=== PATIENT | male | born 1985 | race American Indian/Alaskan Native ===

== ENCOUNTER 2016-06-28 17:50 | Emergency (ER) | payer SELFPAY | END 2016-06-28 19:41 | disposition left against medical advice (07) | LOC: DL.ED 17:50 | DX: Z53.21 Procedure and treatment not carried out due to patient leaving prior to being seen by health care provider (principal) | CPT/HCPCS: 99283 ==

== ENCOUNTER 2017-04-01 18:09 | Emergency (ER) | payer SELFPAY ==
[~2017-04-01 18:09] MED LIST: Sodium Chloride 0.9% 10 ML Syringe FLUSH PRN
[2017-04-01 18:38] LABS: CHLORIDE,CL 107 mmol/L (101-111); SODIUM,NA 142 mmol/L (135-145)
[2017-04-01] MEDS ORDERED: Piperacillin/Tazobactam 3.375 GM in Sodium Chloride 0.9% 100 ML IV ONE (20:40)
--- NOTE | 2017-04-01 20:49 | EDM.PDOC ---
ED HPI GENERAL MEDICAL PROBLEM - General Chief Complaint: Skin Complaint Stated Complaint: CAME BY AMBULANCE, RT FOOT PROBLEM Time Seen by Provider: 04/01/17 19:15 Source of Information: Reports: Patient History Limitations: Reports: No Limitations - History of Present Illness INITIAL COMMENTS - FREE TEXT/NARRATIVE: ED with c/o sore on right foot that is not healing, started 2 weeks ago and is draining. Denies fever or chills. Notes is diabetic, diagnosed 3 years ago and was started on metformin but has not taken it in "long time". - Related Data Allergies Allergy/AdvReac Type Severity Reaction Status Date / Time No Known Allergies Allergy Verified 04/01/17 17:57 Home Meds: Home Meds . [No Known Home Meds] 04/01/17 [History] Past Medical History Endocrine/Metabolic History: Reports: Diabetes, Type II, Other (See Below) Other Endocrine/Metabolic History: diabetic neuropathy Social & Family History - Tobacco Use Smoking Status *Q: Current Every Day Smoker Years of Tobacco use: 9 Packs/Tins Daily: 0.5 - Caffeine Use Caffeine Use: Reports: Coffee, Energy Drinks, Soda - Alcohol Use Days Per Week of Alcohol Use: 2 Number of Drinks Per Day: 10 Total Drinks Per Week: 20 - Recreational Drug Use Recreational Drug Use: Yes Recreational Drug Type: Reports: Marijuana/Hashish ED ROS GENERAL - Review of Systems Review Of Systems: See Below Constitutional: Denies: Fever, Chills HEENT: Reports: No Symptoms Respiratory: Reports: No Symptoms Cardiovascular: Reports: No Symptoms Endocrine: Reports: Other (diabetic, non compliant) GI/Abdominal: Reports: No Symptoms Musculoskeletal: Reports: Foot Pain Skin: Reports: Wound Neurological: Reports: No Symptoms ED EXAM, SKIN/RASH Exam: See Below Exam Limited By: No Limitations General Appearance: Alert, No Apparent Distress Eye Exam: Bilateral Eye: EOMI Ears: Normal External Exam Nose: Normal Inspection Throat/Mouth: Other (poor dentation, odor ETOH) Neck: Normal Inspection Respiratory/Chest: No Respiratory Distress, Lungs Clear Cardiovascular: Normal Peripheral Pulses, Regular Rate, Rhythm Peripheral Pulses: 1+: Dorsalis Pedis (R), 2+: Posterior Tibial (R) GI/Abdominal: Soft Extremities: Other (right foot and lower leg mild swelling, gross swelling to ) Neurological: Alert, Oriented, Normal Cognition Psychiatric: Normal Affect Skin: Warm, Other (2cm circular wound lateral 5th toe right moderate serous drainage, no gross odor noted, discolaration to 5th toe and distla lateral forefoot. ). No: Dry, Intact Associated features: Swelling, Inflammation, Weeping. No: Tenderness ( decreased sensation) Course - Vital Signs Last Recorded V/S: Last Vital Signs Temp 98.3 F 04/01/17 17:50 Pulse 89 04/01/17 17:50 Resp 16 04/01/17 17:50 BP 107/60 04/01/17 17:50 Pulse Ox 100 04/01/17 17:50 - Orders/Labs/Meds Labs: Laboratory Tests 04/01/17 04/01/17 04/01/17 Range/Units 18:00 18:00 18:00 WBC 8.7 (5.0-10.0) 10^3/uL RBC 5.00 (4.6-6.2) 10^6/uL Hgb 14.6 (14.0-18.0) g/dL Hct 43.7 (40.0-54.0) % MCV 87.4 (80-100) fL MCH 29.2 (27.0-34.0) pg MCHC 33.4 (33.0-35.0) g/dL Plt Count 298 (150-450) 10^3/uL Neut % (Auto) 76.7 H (42.2-75.2) % Lymph % (Auto) 15.9 L (20.5-50.1) % [place] % (Auto) 5.8 (2-8) % Eos % (Auto) 1.1 (1.0-3.0) % Baso % (Auto) 0.5 (0.0-1.0) % Sodium 142 (135-145) mmol/L Potassium 3.7 (3.6-5.0) mmol/L Chloride 107 (101-111) mmol/L Carbon Dioxide 26.0 (21.0-31.0) mmol/L Anion Gap 12.7 BUN 7 (7-18) mg/dL Creatinine 0.7 (0.6-1.3) mg/dL Est Cr Clr Drug Dosing 191.17 mL/min Estimated GFR (MDRD) > 60 BUN/Creatinine Ratio 10.00 Glucose 96 (74-105) mg/dL Lactic Acid 1.6 (0.5-2.2) mmol/L Calcium 8.4 (8.4-10.2) mg/dl Total Bilirubin 0.3 (0.2-1.0) mg/dL AST 23 (10-42) IU/L ALT 8 L (10-60) IU/L Alkaline Phosphatase 75 (42-121) IU/L Total Protein 8.3 H (6.7-8.2) g/dl Albumin 3.6 (3.2-5.5) g/dl Globulin 4.7 Albumin/Globulin Ratio 0.77 Urine Color (YELLOW) Urine Appearance (CLEAR) Urine pH (5.0-9.0) Ur Specific [place] (1.005-1.030) Urine Protein (NEGATIVE) Urine Glucose (UA) (NEGATIVE) Urine Ketones (NEGATIVE) Urine Occult Blood (NEGATIVE) Urine Nitrite (NEGATIVE) Urine Bilirubin (NEGATIVE) Urine Urobilinogen (0.2-1.0) mg/dL Ur Leukocyte Esterase (NEGATIVE) Urine RBC /HPF Urine WBC (0-5/HPF) /HPF Ur Epithelial Cells /HPF Urine Bacteria (0-FEW/HPF) /HPF Urine Mucus /LPF Urine Opiates Screen (NEGATIVE) Ur Oxycodone Screen (NEGATIVE) Urine Methadone Screen (NEGATIVE) Ur Barbiturates Screen (NEGATIVE) U Tricyclic Antidepress (NEGATIVE) Ur Phencyclidine Scrn (NEGATIVE) Ur Amphetamine Screen (NEGATIVE) U Methamphetamines Scrn (NEGATIVE) Urine MDMA Screen (NEGATIVE) U Benzodiazepines Scrn (NEGATIVE) Urine Cocaine Screen (NEGATIVE) U Marijuana (THC) Screen (NEGATIVE) Ethyl Alcohol 250 mg/dL 04/01/17 04/01/17 Range/Units 18:18 18:18 WBC (5.0-10.0) 10^3/uL RBC (4.6-6.2) 10^6/uL Hgb (14.0-18.0) g/dL Hct (40.0-54.0) % MCV (80-100) fL MCH (27.0-34.0) pg MCHC (33.0-35.0) g/dL Plt Count (150-450) 10^3/uL Neut % (Auto) (42.2-75.2) % Lymph % (Auto) (20.5-50.1) % [place] % (Auto) (2-8) % Eos % (Auto) (1.0-3.0) % Baso % (Auto) (0.0-1.0) % Sodium (135-145) mmol/L Potassium (3.6-5.0) mmol/L Chloride (101-111) mmol/L Carbon Dioxide (21.0-31.0) mmol/L Anion Gap BUN (7-18) mg/dL Creatinine (0.6-1.3) mg/dL Est Cr Clr Drug Dosing mL/min Estimated GFR (MDRD) BUN/Creatinine Ratio Glucose (74-105) mg/dL Lactic Acid (0.5-2.2) mmol/L Calcium (8.4-10.2) mg/dl Total Bilirubin (0.2-1.0) mg/dL AST (10-42) IU/L ALT (10-60) IU/L Alkaline Phosphatase (42-121) IU/L Total Protein (6.7-8.2) g/dl Albumin (3.2-5.5) g/dl Globulin Albumin/Globulin Ratio Urine Color Yellow (YELLOW) Urine Appearance Clear (CLEAR) Urine pH 6.0 (5.0-9.0) Ur Specific [place] 1.015 (1.005-1.030) Urine Protein Negative (NEGATIVE) Urine Glucose (UA) Negative (NEGATIVE) Urine Ketones Negative (NEGATIVE) Urine Occult Blood Negative (NEGATIVE) Urine Nitrite Negative (NEGATIVE) Urine Bilirubin Negative (NEGATIVE) Urine Urobilinogen 0.2 (0.2-1.0) mg/dL Ur Leukocyte Esterase Negative (NEGATIVE) Urine RBC 0-5 /HPF Urine WBC 0-5 (0-5/HPF) /HPF Ur Epithelial Cells Few /HPF Urine Bacteria Few (0-FEW/HPF) /HPF Urine Mucus Moderate H /LPF Urine Opiates Screen Negative (NEGATIVE) Ur Oxycodone Screen Negative (NEGATIVE) Urine Methadone Screen Negative (NEGATIVE) Ur Barbiturates Screen Negative (NEGATIVE) U Tricyclic Antidepress Negative (NEGATIVE) Ur Phencyclidine Scrn Negative (NEGATIVE) Ur Amphetamine Screen Positive H (NEGATIVE) U Methamphetamines Scrn Positive H (NEGATIVE) Urine MDMA Screen Negative (NEGATIVE) U Benzodiazepines Scrn Negative (NEGATIVE) Urine Cocaine Screen Negative (NEGATIVE) U Marijuana (THC) Screen Positive H (NEGATIVE) Ethyl Alcohol mg/dL Meds: Medications Discontinued Medications Generic Name Dose Route Start Last Admin Trade Name Freq PRN Reason Stop Dose Admin Piperacillin Sod/Tazobactam 100 mls @ 200 mls/hr 04/01/17 20:40 04/01/17 20: 51 Sod 3.375 gm/ Sodium Chloride IV 04/01/17 21:09 200 mls/hr ONETIME ONE Administration Vancomycin HCl 1 gm/ Sodium 250 mls @ 167 mls/hr 04/01/17 20:40 04/01/17 20: 53 Chloride IV 04/01/17 22:09 Not Given ONETIME ONE Sodium Chloride 10 ml 04/01/17 17:45 04/01/17 18:04 Saline Flush FLUSH 10 ml ASDIRECTED PRN Administration Keep Vein Open - Radiology Interpretation Free Text/Narrative:: xray right foot, osteomylitis to 5th toe - Re-Assessments/Exams Free Text/Narrative Re-Assessment/Exam: 04/01/17 20:50 Patient denying any drug use currently with exception of cannibas or use hx. UDS demonstrates positive also for meth and amphetamine. Strong odor ETOH, with elevated ETOH. TC Dr. Nils Duffy, accepting of patient for further eval and management of diabetic wound and osteomylitis. Tx via LRAS, stable condition Departure - Departure Time of Disposition: 20:52 Disposition: DC/Tfer to Acute Hospital 02 Condition: Undetermined Clinical Impression: Acute osteomyelitis, ETOH abuse, Substance abuse Diabetic ulcer of toe Qualifiers: Diabetes mellitus type: type 2 Laterality: right Non-pressure ulcer stage: unspecified non-pressure ulcer stage Qualified Code(s): E11.621 - Type 2 diabetes mellitus with foot ulcer - Discharge Information Forms: ED Department Discharge
== END 2017-04-01 21:20 ==
LOC: DL.ED 18:09
DX: M86.171 Other acute osteomyelitis, right ankle and foot (principal); E11.621 Type 2 diabetes mellitus with foot ulcer; F10.10 Alcohol abuse, uncomplicated; F15.10 Other stimulant abuse, uncomplicated; E11.40 Type 2 diabetes mellitus with diabetic neuropathy, unspecified; F17.210 Nicotine dependence, cigarettes, uncomplicated
CPT/HCPCS: 36415; 73630; 80053; 80305; 81001; 83605; 85025; 87040; 96365; 99284; G0480; J2543; J7050

== ENCOUNTER 2017-12-02 13:21 | Emergency (ER) | payer MEDICAID ==
[2017-12-02] MEDS ORDERED: Sulfamethoxazole/Trimethoprim 800-160 MG Tab PO ONE (15:37)
[2017-12-02] MEDS ORDERED: Clindamycin HCl 150 MG Cap PO ONE (15:37)
--- NOTE | 2017-12-23 11:21 | EDM.PDOC ---
Scribed by Mimi Winchester 12/04/17 1314 for René Gonzalez MD ED HPI GENERAL MEDICAL PROBLEM - General Chief Complaint: Lower Extremity Injury/Pain Stated Complaint: AMBULANCE Time Seen by Provider: 12/02/17 13:23 Source of Information: Reports: Patient, EMS, EMS Notes Reviewed, RN, RN Notes Reviewed History Limitations: Reports: No Limitations - History of Present Illness INITIAL COMMENTS - FREE TEXT/NARRATIVE: Pt presented to ER by ambulance with c/o ulcer to the Rt 1st toe/foot. Pt isn't sure how long it has been there. Denies fever or chills. Onset: Gradual Duration: Chronic - Related Data Allergies Allergy/AdvReac Type Severity Reaction Status Date / Time No Known Allergies Allergy Verified 12/12/17 11:22 Home Meds: Home Meds Ibuprofen 200 mg PO ASDIRECTED PRN 04/13/17 [History] metFORMIN HCl [Metformin HCl] 1,000 mg PO BID 04/13/17 [History] Past Medical History HEENT History: Reports: Impaired Vision Cardiovascular History: Reports: Hypertension Musculoskeletal History: Reports: Fracture, Other (See Below) Other Musculoskeletal History: broken collar bone, broken arms, broken Psychiatric History: Reports: Depression Endocrine/Metabolic History: Reports: Diabetes, Type II, Other (See Below) Other Endocrine/Metabolic History: diabetic neuropathy - Infectious Disease History Infectious Disease History: Reports: Chicken Pox - Past Surgical History HEENT Surgical History: Reports: None Cardiovascular Surgical History: Reports: None Other Neurological Surgeries/Procedures: pt used to be on zoloft Musculoskeletal Surgical History: Reports: Amputation (Rt 5th toe) Social & Family History - Family History Endocrine/Metabolic: Reports: Diabetes, type II - Caffeine Use Caffeine Use: Reports: Coffee, Soda - Living Situation & Occupation Living situation: Reports: with Family Occupation: Employed Review of Systems - Review of Systems Review Of Systems: ROS reveals no pertinent complaints other than HPI. ED EXAM, GENERAL - Physical Exam Exam: See Below Exam Limited By: No Limitations General Appearance: Alert, WD/WN, No Apparent Distress Head: Atraumatic, Normocephalic Neck: Normal Inspection Respiratory/Chest: No Respiratory Distress Cardiovascular: Normal Peripheral Pulses Extremities: Normal Range of Motion, No Pedal Edema, Normal Capillary Refill, Increased Warmth, Other (unstagable plantar pressure ulcer to Rt 1st toe with small amt. of purulent drainage, minimal peripheral erythema. Remote amputation of Rt 5th toe. ). No: Joint Swelling Neurological: Alert, Oriented, No Motor/Sensory Deficits Psychiatric: Normal Mood Course - Vital Signs Last Recorded V/S: Last Vital Signs Temp 36.6 C 12/02/17 14:14 Pulse 78 12/02/17 14:14 Resp 15 12/02/17 14:14 BP 135/90 12/02/17 14:14 Pulse Ox 99 12/02/17 14:14 - Orders/Labs/Meds Labs: Laboratory Tests 12/02/17 12/02/17 12/02/17 Range/Units 14:27 14:30 14:30 WBC 6.2 (5.0-10.0) 10^3/uL RBC 4.88 (4.6-6.2) 10^6/uL Hgb 13.7 L (14.0-18.0) g/dL Hct 42.0 (40.0-54.0) % MCV 86.1 (80-100) fL MCH 28.1 (27.0-34.0) pg MCHC 32.6 L (33.0-35.0) g/dL Plt Count 282 (150-450) 10^3/uL Neut % (Auto) 75.7 H (42.2-75.2) % Lymph % (Auto) 16.1 L (20.5-50.1) % [place] % (Auto) 6.1 (2-8) % Eos % (Auto) 1.8 (1.0-3.0) % Baso % (Auto) 0.3 (0.0-1.0) % POC Glucose 238 H (70-105) mg/dl C-Reactive Protein 4.0 H (0.0-1.3) mg/dL Meds: Medications Discontinued Medications Generic Name Dose Route Start Last Admin Trade Name Freq PRN Reason Stop Dose Admin Clindamycin HCl 300 mg 12/02/17 15:37 12/02/17 15:44 Cleocin PO 12/02/17 15:38 300 mg ONETIME ONE Administration Trimethoprim/Sulfamethoxazole 1 tab 12/02/17 15:37 12/02/17 15:44 Septra Ds PO 12/02/17 15:38 1 tab ONETIME ONE Administration - Radiology Interpretation Free Text/Narrative:: X-ray right foot: There is no evidence of acute fracture. There is no evidence of joint malignment or dislocation. There has been prior amputation of the fifth toe. See rad report. Departure - Departure Time of Disposition: 16:27 Disposition: Home, Self-Care 01 Condition: Fair Clinical Impression: Diabetic ulcer of toe associated with type 2 diabetes mellitus Qualifiers: Laterality: right Non-pressure ulcer stage: unspecified non-pressure ulcer stage Qualified Code(s): E11.621 - Type 2 diabetes mellitus with foot ulcer; L97.519 - Non-pressure chronic ulcer of other part of right foot with unspecified severity - Discharge Information Instructions: Diabetes Mellitus and Foot Care Referrals: PCP,None [Primary Care Provider] - Forms: ED Department Discharge Additional Instructions: RX: Clindamycin 300mg. RX: Bactrim DS. Follow up at [facility] on Monday for recheck and podiatry referral. I have read and agree with the documentation that has been completed regarding this visit. By signing this record, I attest that the documentation was completed in my physical presence and is an accurate record of the encounter.
== END 2017-12-02 16:50 | disposition home or self-care (01) ==
LOC: DL.ED 13:21
DX: E11.621 Type 2 diabetes mellitus with foot ulcer (principal); L97.519 Non-pressure chronic ulcer of other part of right foot with unspecified severity; Z79.84 Long term (current) use of oral hypoglycemic drugs; I10 Essential (primary) hypertension; H54.7 Unspecified visual loss; E11.40 Type 2 diabetes mellitus with diabetic neuropathy, unspecified; M20.5X1 Other deformities of toe(s) (acquired), right foot
CPT/HCPCS: 36415; 73630; 82962; 85025; 86140; 99283; A9270

== ENCOUNTER 2017-12-12 11:20 | Emergency (ER) | payer MEDICAID ==
--- NOTE | 2017-12-12 11:59 | EDM.PDOC ---
ED HPI GENERAL MEDICAL PROBLEM - General Chief Complaint: Lower Extremity Injury/Pain Stated Complaint: IN BY AMBULANCE Time Seen by Provider: 12/12/17 11:45 Source of Information: Reports: Patient History Limitations: Reports: No Limitations - History of Present Illness INITIAL COMMENTS - FREE TEXT/NARRATIVE: This 32 yo male patient reports to the ED with right great toe pain, swelling and drainage. The patient reports that he has been seen in the ED for his toe on 12/02/17, followed up in the [facility] on 12/04/17, missed his follow- up appointment yesterday and has noticed drainage from the area that started last night. The patient reports that he was initially started on Bactrim and Clindamycin (12/02/17). The patient was given Doxycycline on 12/04/17 and has been taking the medication as directed. The patient reports that he does not recall having an appointment with a meringuer. 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 Onset: Unknown/Unsure Duration: Week(s):, Constant, Getting Worse Location: Reports: Lower Extremity, Right Quality: Reports: Ache, Dull Severity: Moderate Improves with: Reports: None Worsens with: Reports: None Associated Symptoms: Reports: No Other Symptoms - Related Data Allergies Allergy/AdvReac Type Severity Reaction Status Date / Time No Known Allergies Allergy Verified 12/12/17 11:22 Home Meds: Home Meds Ibuprofen 200 mg PO ASDIRECTED PRN 04/13/17 [History] metFORMIN HCl [Metformin HCl] 1,000 mg PO BID 04/13/17 [History] Past Medical History HEENT History: Reports: Impaired Vision Cardiovascular History: Reports: Hypertension Musculoskeletal History: Reports: Fracture, Other (See Below) Other Musculoskeletal History: broken collar bone, broken arms, broken Psychiatric History: Reports: Depression Endocrine/Metabolic History: Reports: Diabetes, Type II, Other (See Below) Other Endocrine/Metabolic History: diabetic neuropathy - Infectious Disease History Infectious Disease History: Reports: Chicken Pox - Past Surgical History HEENT Surgical History: Reports: None Cardiovascular Surgical History: Reports: None Other Neurological Surgeries/Procedures: pt used to be on zoloft Social & Family History - Family History Family Medical History: Noncontributory Endocrine/Metabolic: Reports: Diabetes, type II - Tobacco Use Smoking Status *Q: Current Every Day Smoker Years of Tobacco use: 10 Packs/Tins Daily: 0.1 - Caffeine Use Caffeine Use: Reports: Soda - Alcohol Use Days Per Week of Alcohol Use: 1 Number of Drinks Per Day: 3 Total Drinks Per Week: 3 - Recreational Drug Use Recreational Drug Use: Yes Drug Use in Last 12 Months: Yes Recreational Drug Type: Reports: Marijuana/Hashish Recreational Drug Use Frequency: Socially Review of Systems - Review of Systems Review Of Systems: ROS reveals no pertinent complaints other than HPI. ED EXAM, GENERAL - Physical Exam Exam: See Below Exam Limited By: No Limitations General Appearance: Alert, WD/WN, Mild Distress Eye Exam: Bilateral Eye: EOMI, Normal Inspection, PERRL Ears: Normal External Exam, Normal Canal, Hearing Grossly Normal, Normal TMs Nose: Normal Inspection, Normal Mucosa, No Blood Throat/Mouth: Normal Inspection, Normal Lips, Normal Teeth, Normal Gums, Normal Oropharynx, Normal Voice, No Airway Compromise Head: Atraumatic, Normocephalic Neck: Normal Inspection, Supple, Non-Tender, Full Range of Motion Respiratory/Chest: No Respiratory Distress, Lungs Clear, Normal Breath Sounds, No Accessory Muscle Use, Chest Non-Tender Cardiovascular: Normal Peripheral Pulses, Regular Rate, Rhythm, No Edema, No Gallop, No JVD, No Murmur, No Rub GI/Abdominal: Normal Bowel Sounds, Soft, Non-Tender, No Organomegaly, No Distention, No Abnormal Bruit, No Mass (Male) Exam: Deferred Rectal (Males) Exam: Deferred Back Exam: Normal Inspection, Full Range of Motion, NT Extremities: Other (right great toe ertythema with an open wound to the medial aspect) Neurological: Alert, Oriented, CN II-XII Intact, Normal Cognition Psychiatric: Normal Affect, Normal Mood Skin Exam: Erythema (right medial great toe), Wound/Incision Lymphatic: No Adenopathy Course - Vital Signs Last Recorded V/S: Last Vital Signs Temp 36.3 C 12/12/17 11:21 Pulse 96 12/12/17 11:21 Resp 15 12/12/17 11:21 BP 133/90 12/12/17 11:21 Pulse Ox 100 12/12/17 11:21 - Orders/Labs/Meds Orders: Active Orders 24 hr Category Date Time Status COMPREHENSIVE METABOLIC PN,CMP [CHEM] Urgent Lab 12/12/17 11:37 Received CULTURE BLOOD [BC] Stat Lab 12/12/17 11:37 Received CULTURE BLOOD [BC] Stat Lab 12/12/17 11:41 Received LACTIC ACID [CHEM] Stat Lab 12/12/17 11:37 Received Blood Culture x2 Reflex Set [OM.PC] Stat Oth 12/12/17 11:25 Ordered Labs: Laboratory Tests 12/12/17 Range/Units 11:37 WBC 6.2 (5.0-10.0) 10^3/uL RBC 5.24 (4.6-6.2) 10^6/uL Hgb 14.9 (14.0-18.0) g/dL Hct 45.0 (40.0-54.0) % MCV 85.9 (80-100) fL MCH 28.4 (27.0-34.0) pg MCHC 33.1 (33.0-35.0) g/dL Plt Count 196 D (150-450) 10^3/uL Neut % (Auto) 79.4 H (42.2-75.2) % Lymph % (Auto) 10.6 L (20.5-50.1) % [place] % (Auto) 9.0 H (2-8) % Eos % (Auto) 0.5 L (1.0-3.0) % Baso % (Auto) 0.5 (0.0-1.0) % Meds: Medications Discontinued Medications Generic Name Dose Route Start Last Admin Trade Name Freq PRN Reason Stop Dose Admin Bacitracin 1 dose 12/12/17 12:25 Bacitracin Oint 1 Gm TOP 12/12/17 12:26 ONETIME ONE Departure - Departure Time of Disposition: 12:28 Disposition: Home, Self-Care 01 Condition: Fair Clinical Impression: Diabetic foot ulcer Qualifiers: Diabetic foot ulcer location: toe Diabetes mellitus type: other specified ( including EMILY) Laterality: right Non-pressure ulcer stage: unspecified non- pressure ulcer stage Qualified Code(s): E13.621 - Other specified diabetes mellitus with foot ulcer; L97.519 - Non-pressure chronic ulcer of other part of right foot with unspecified severity - Discharge Information *PRESCRIPTION DRUG MONITORING PROGRAM REVIEWED*: Not Applicable *COPY OF PRESCRIPTION DRUG MONITORING REPORT IN PATIENT JABIER: Not Applicable Forms: ED Department Discharge Care Plan Goals: The patient was advised of the examination, lab and x-ray results during the visit. An appointment was established for the patient to see Dr. Encinas ( Podiatry at [facility]) today at 1500. The patient's wound was cleaned and bandaged while in the ED. If the patient has any additional symptoms or concerns, the patient should visit Dr. Encinas for continued evaluation and further care. - My Orders Last 24 Hours: My Active Orders 12/12/17 11:25 Blood Culture x2 Reflex Set [OM.PC] Stat 12/12/17 11:37 COMPREHENSIVE METABOLIC PN,CMP [CHEM] Urgent CULTURE BLOOD [BC] Stat LACTIC ACID [CHEM] Stat 12/12/17 11:41 CULTURE BLOOD [BC] Stat - Assessment/Plan Last 24 Hours: My Active Orders 12/12/17 11:25 Blood Culture x2 Reflex Set [OM.PC] Stat 12/12/17 11:37 COMPREHENSIVE METABOLIC PN,CMP [CHEM] Urgent CULTURE BLOOD [BC] Stat LACTIC ACID [CHEM] Stat 12/12/17 11:41 CULTURE BLOOD [BC] Stat
--- NOTE | 2017-12-12 12:02 | CR ---
CLINICAL HISTORY: 32-year-old male with right toe pain. Patient reported on right forefoot exam 2017 to have "amputation fifth toe" but no other abnormality. INTERPRETATION: Three views right great toe suggests some early arthritis (reactive sclerosis and tin y marginal spur formation) first metatarsal-phalangeal joint. Clinical? No appreciable interval bliss e since recent 02 December films. No sign of foreign body, inflammatory periostitis, right great toe fracture or dislocation. No juxta-articular gouty tophi or underlying bony erosions.
[2017-12-12] MEDS ORDERED: Bacitracin Oint 1 GM U/D Packet TOP ONE (12:25)
[2017-12-12 14:20] LABS: SODIUM,NA 132 mmol/L (135-145)
== END 2017-12-12 12:36 | disposition home or self-care (01) ==
LOC: DL.ED 11:20
DX: E11.621 Type 2 diabetes mellitus with foot ulcer (principal); L97.519 Non-pressure chronic ulcer of other part of right foot with unspecified severity; F17.210 Nicotine dependence, cigarettes, uncomplicated; I10 Essential (primary) hypertension; E11.9 Type 2 diabetes mellitus without complications; Z79.84 Long term (current) use of oral hypoglycemic drugs
CPT/HCPCS: 36415; 73660-T5; 80053; 83605; 85025; 87040; 99284

== ENCOUNTER 2018-01-25 17:57 | Emergency (ER) | payer MEDICAID ==
[2018-01-25 18:50] LABS: ANION GAP 12.9; CHLORIDE,CL 91 mmol/L (101-111); SODIUM,NA 129 mmol/L (135-145)
[2018-01-25] MEDS ORDERED: Sodium Chloride 0.9% 1,000 ML IV ONE (19:01)
[2018-01-25] MEDS ORDERED: Insulin Regular, Human 100 Units/ML 3 ML Vial SUBCUT ONE (19:01)
--- NOTE | 2018-01-25 19:09 | EDM.PDOC ---
Scribed by Mimi Winchester 01/25/18 094 for René Gonzalez MD ED HPI GENERAL MEDICAL PROBLEM - General Chief Complaint: Lower Extremity Injury/Pain Stated Complaint: FOOT INFECTION Time Seen by Provider: 01/25/18 17:56 Source of Information: Reports: Patient, EMS, EMS Notes Reviewed, RN, RN Notes Reviewed History Limitations: Reports: No Limitations - History of Present Illness INITIAL COMMENTS - FREE TEXT/NARRATIVE: Patient presents to ER per [facility] with complaint of large right foot ulcer. Patient reports that this ulcer has been present for about a week. EMS report a 10cm x 5cm deep chronic appearing ulcer which looks much older than 1 week. Patient has history of diabetes mellitus type 2, noninsulin dependent but has not taken his Metformin for about 1 year. Patient states he had osteomyelitis which resulted in amputation of the right fifth toe about a year ago. He denies fever or chills. He admits that he has been having some drainage from the right/ankle ulcer, but he cannot describe the appearance of the drainage. Onset: Gradual Duration: Getting Worse Location: Reports: Lower Extremity, Right Severity: Severe Improves with: Reports: None Worsens with: Reports: None Associated Symptoms: Reports: No Other Symptoms Right Feet Pain Score (Numeric/FACES): 8 - Related Data Allergies Allergy/AdvReac Type Severity Reaction Status Date / Time No Known Allergies Allergy Verified 12/12/17 11:22 Home Meds: Home Meds Ibuprofen 200 mg PO ASDIRECTED PRN 04/13/17 [History] metFORMIN HCl [Metformin HCl] 1,000 mg PO BID 04/13/17 [History] Past Medical History HEENT History: Reports: Impaired Vision Cardiovascular History: Reports: Hypertension Musculoskeletal History: Reports: Fracture, Other (See Below) Other Musculoskeletal History: broken collar bone, broken arms, broken Psychiatric History: Reports: Depression Endocrine/Metabolic History: Reports: Diabetes, Type II, Other (See Below) Other Endocrine/Metabolic History: diabetic neuropathy - Infectious Disease History Infectious Disease History: Reports: Chicken Pox - Past Surgical History HEENT Surgical History: Reports: None Cardiovascular Surgical History: Reports: None Other Neurological Surgeries/Procedures: pt used to be on zoloft Social & Family History - Family History Family Medical History: Noncontributory Endocrine/Metabolic: Reports: Diabetes, type II - Caffeine Use Caffeine Use: Reports: Soda - Living Situation & Occupation Living situation: Reports: with Family Occupation: Unemployed Review of Systems - Review of Systems Review Of Systems: ROS reveals no pertinent complaints other than HPI. ED EXAM, GENERAL - Physical Exam Exam: See Below Exam Limited By: No Limitations General Appearance: Alert, No Apparent Distress, Thin, Other (unkept with poor hygiene and chronically ill appearing. ) Nose: Normal Inspection Throat/Mouth: Normal Voice, No Airway Compromise Head: Atraumatic, Normocephalic Neck: Normal Inspection, Supple, Non-Tender, Full Range of Motion Respiratory/Chest: No Respiratory Distress, Lungs Clear, Normal Breath Sounds, No Accessory Muscle Use, Chest Non-Tender Cardiovascular: Regular Rate, Rhythm, No Edema Back Exam: Normal Inspection Extremities: Slow Capillary Refill (toes bilaterally), Other (dorsal right foot and ankle with 10cm x 5cm deep chronic appearing ulcer unstageable depth. Has s/ p right 5th toe amputation. There is mild soft tissue swelling to the medial left foot extending to the medial first toe where a cloudy callus appears to have a likely underlying ulceration. ) Neurological: Alert, Oriented, No Motor/Sensory Deficits Psychiatric: Normal Mood Skin Exam: Other (bilateral upper extremity recent tatoos with bilateral proximal forearm tatoos with mild erythema, inflammation and crusting. ) Course - Vital Signs Last Recorded V/S: Last Vital Signs Temp 36.8 C 01/25/18 18:42 Pulse 96 01/25/18 18:42 Resp 16 01/25/18 18:42 BP 135/92 H 01/25/18 18:42 Pulse Ox 100 01/25/18 18:42 - Orders/Labs/Meds Orders: Active Orders 24 hr Category Date Time Status Blood Glucose Check, Bedside [RC] ONETIME Care 01/25/18 18:08 Active CULTURE BLOOD [BC] Stat Lab 01/25/18 18:15 Received CULTURE BLOOD [BC] Stat Lab 01/25/18 18:20 Results DRUG SCREEN URINE BIORAD [URCHEM] Stat Lab 01/25/18 19:05 Ordered ESR [SEDIMENTATION RATE MANUAL] [HEME] Stat Lab 01/25/18 18:15 Received UA W/MICROSCOPIC [URIN] Stat Lab 01/25/18 19:05 Ordered Sodium Chloride 0.9% [Normal Saline] 1,000 ml Med 01/25/18 19:01 Active IV .BOLUS Blood Culture x2 Reflex Set [OM.PC] Stat Oth 01/25/18 18:08 Ordered Medication Orders Sodium Chloride (Normal Saline) 1,000 mls @ 999 mls/hr IV .BOLUS ONE Stop: 01/25/18 20:01 Labs: Laboratory Tests 01/25/18 01/25/18 01/25/18 Range/Units 18:15 18:15 18:15 WBC 7.0 (5.0-10.0) 10^3/uL RBC 4.59 L (4.6-6.2) 10^6/uL Hgb 12.8 L D (14.0-18.0) g/dL Hct 39.2 L (40.0-54.0) % MCV 85.4 (80-100) fL MCH 27.9 (27.0-34.0) pg MCHC 32.7 L (33.0-35.0) g/dL Plt Count 406 D (150-450) 10^3/uL Neut % (Auto) 73.1 (42.2-75.2) % Lymph % (Auto) 16.9 L (20.5-50.1) % [place] % (Auto) 8.3 H (2-8) % Eos % (Auto) 1.4 (1.0-3.0) % Baso % (Auto) 0.3 (0.0-1.0) % Sodium 129 L (135-145) mmol/L Potassium 3.9 (3.6-5.0) mmol/L Chloride 91 L D (101-111) mmol/L Carbon Dioxide 29.0 (21.0-31.0) mmol/L Anion Gap 12.9 BUN < 5 L (7-18) mg/dL Creatinine 0.8 (0.6-1.3) mg/dL Est Cr Clr Drug Dosing 165.76 mL/min Estimated GFR (MDRD) > 60 BUN/Creatinine Ratio 6.25 Glucose 469 H* (74-105) mg/dL POC Glucose (70-105) mg/dl Lactic Acid 1.4 (0.5-2.2) mmol/L Calcium 8.8 (8.4-10.2) mg/dl Total Bilirubin 0.4 (0.2-1.0) mg/dL AST 15 (10-42) IU/L ALT 9 L (10-60) IU/L Alkaline Phosphatase 124 H (42-121) IU/L C-Reactive Protein (0.0-1.3) mg/dL Total Protein 7.4 (6.7-8.2) g/dl Albumin 2.9 L (3.2-5.5) g/dl Globulin 4.5 Albumin/Globulin Ratio 0.64 Ethyl Alcohol < 5 mg/dL 01/25/18 01/25/18 Range/Units 18:15 18:31 WBC (5.0-10.0) 10^3/uL RBC (4.6-6.2) 10^6/uL Hgb (14.0-18.0) g/dL Hct (40.0-54.0) % MCV (80-100) fL MCH (27.0-34.0) pg MCHC (33.0-35.0) g/dL Plt Count (150-450) 10^3/uL Neut % (Auto) (42.2-75.2) % Lymph % (Auto) (20.5-50.1) % [place] % (Auto) (2-8) % Eos % (Auto) (1.0-3.0) % Baso % (Auto) (0.0-1.0) % Sodium (135-145) mmol/L Potassium (3.6-5.0) mmol/L Chloride (101-111) mmol/L Carbon Dioxide (21.0-31.0) mmol/L Anion Gap BUN (7-18) mg/dL Creatinine (0.6-1.3) mg/dL Est Cr Clr Drug Dosing mL/min Estimated GFR (MDRD) BUN/Creatinine Ratio Glucose (74-105) mg/dL POC Glucose 388 H (70-105) mg/dl Lactic Acid (0.5-2.2) mmol/L Calcium (8.4-10.2) mg/dl Total Bilirubin (0.2-1.0) mg/dL AST (10-42) IU/L ALT (10-60) IU/L Alkaline Phosphatase (42-121) IU/L C-Reactive Protein 1.9 H (0.0-1.3) mg/dL Total Protein (6.7-8.2) g/dl Albumin (3.2-5.5) g/dl Globulin Albumin/Globulin Ratio Ethyl Alcohol mg/dL Meds: Medications Generic Name Dose Route Start Last Admin Trade Name Freq PRN Reason Stop Dose Admin Sodium Chloride 1,000 mls @ 999 mls/hr 01/25/18 19:01 Normal Saline IV 01/25/18 20:01 .BOLUS ONE Discontinued Medications Generic Name Dose Route Start Last Admin Trade Name Jayq PRN Reason Stop Dose Admin Insulin Human Regular 12 unit 01/25/18 19:01 Humulin R SUBCUT 01/25/18 19:02 ONETIME ONE Departure - Departure Time of Disposition: 18:53 Disposition: DC/Tfer to [facility] 02 Condition: Serious Clinical Impression: Diabetic ulcer of right lower leg associated with diabetes mellitus due to underlying condition, Hyponatremia Diabetes mellitus type 2, uncontrolled Qualifiers: Glycemic state: with hyperglycemia Qualified Code(s): E11.65 - Type 2 diabetes mellitus with hyperglycemia - Discharge Information *PRESCRIPTION DRUG MONITORING PROGRAM REVIEWED*: No *COPY OF PRESCRIPTION DRUG MONITORING REPORT IN PATIENT JABIER: No Forms: ED Department Discharge, Interfacility Transfer EMTALA - My Orders Last 24 Hours: My Active Orders 01/25/18 18:08 Blood Glucose Check, Bedside [RC] ONETIME Blood Culture x2 Reflex Set [OM.PC] Stat 01/25/18 18:15 CULTURE BLOOD [BC] Stat ESR [SEDIMENTATION RATE MANUAL] [HEME] Stat 01/25/18 18:20 CULTURE BLOOD [BC] Stat 01/25/18 19:01 Sodium Chloride 0.9% [Normal Saline] 1,000 ml IV .BOLUS 01/25/18 19:05 DRUG SCREEN URINE BIORAD [URCHEM] Stat UA W/MICROSCOPIC [URIN] Stat - Assessment/Plan Last 24 Hours: My Active Orders 01/25/18 18:08 Blood Glucose Check, Bedside [RC] ONETIME Blood Culture x2 Reflex Set [OM.PC] Stat 01/25/18 18:15 CULTURE BLOOD [BC] Stat ESR [SEDIMENTATION RATE MANUAL] [HEME] Stat 01/25/18 18:20 CULTURE BLOOD [BC] Stat 01/25/18 19:01 Sodium Chloride 0.9% [Normal Saline] 1,000 ml IV .BOLUS 01/25/18 19:05 DRUG SCREEN URINE BIORAD [URCHEM] Stat UA W/MICROSCOPIC [URIN] Stat I have read and agree with the documentation that has been completed regarding this visit. By signing this record, I attest that the documentation was completed in my physical presence and is an accurate record of the encounter.
== END 2018-01-25 19:32 ==
LOC: DL.ED 17:57
DX: E11.621 Type 2 diabetes mellitus with foot ulcer (principal); L97.519 Non-pressure chronic ulcer of other part of right foot with unspecified severity; E11.65 Type 2 diabetes mellitus with hyperglycemia; E87.1 Hypo-osmolality and hyponatremia; I10 Essential (primary) hypertension; Z79.84 Long term (current) use of oral hypoglycemic drugs
CPT/HCPCS: 36415; 80053; 80305; 81001; 82009; 82962; 83605; 85025; 85651; 86140; 87040; 96365; 96372; 99284; G0480; J1815; J7030

== ENCOUNTER 2021-04-25 08:21 | Emergency (ER) | payer SELFPAY ==
--- NOTE | 2021-04-25 08:41 | EDM.PDOC ---
ED HPI GENERAL MEDICAL PROBLEM - General Stated Complaint: AMBULANCE Time Seen by Provider: 04/25/21 08:40 Source of Information: Reports: Patient, Old Records, RN, RN Notes Reviewed History Limitations: Reports: No Limitations - History of Present Illness INITIAL COMMENTS - FREE TEXT/NARRATIVE: Pt arrives to ER from home by ambulance with c/o waking this morning with sudden onset of generalized body aches, nausea, sore throat, and mild cough. He reports Hx DM type 2 and HTN but has been out of all of his medications for about a year. Denies chest pain, wheezing, abdominal pain, vomiting, or diarrhea. Onset: Today, Sudden Duration: Constant Location: Reports: Generalized Severity: Moderate Improves with: Reports: None Worsens with: Reports: None - Related Data Allergies Allergy/AdvReac Type Severity Reaction Status Date / Time No Known Allergies Allergy Verified 04/25/21 08:52 Home Meds: Home Meds Ibuprofen 200 mg PO ASDIRECTED PRN 04/13/17 [History] Ciprofloxacin HCl 500 mg PO BID 7 Days #14 tablet 02/18/18 [Rx] Insulin Aspart [NovoLOG] 10 units SQ WITHMEALSANDBED 02/18/18 [History] Insulin Detemir [Levemir Flextouch] 30 units SQ BEDTIME 02/18/18 [History] Metoprolol Succinate [Toprol Xl] 25 mg PO DAILY 02/18/18 [History] cephALEXin [Cephalexin] 500 mg PO QID 02/18/18 [History] Past Medical History HEENT History: Reports: Impaired Vision Cardiovascular History: Reports: Hypertension Respiratory History: Reports: None Gastrointestinal History: Reports: None Genitourinary History: Reports: Diabetic Nephropathy Musculoskeletal History: Reports: Fracture, Other (See Below) Other Musculoskeletal History: broken collar bone, broken arms, broken Neurological History: Reports: Neuropathy, Diabetic Psychiatric History: Reports: Depression Endocrine/Metabolic History: Reports: Diabetes, Type II, Other (See Below) Other Endocrine/Metabolic History: diabetic neuropathy Hematologic History: Reports: None Immunologic History: Reports: None Oncologic (Cancer) History: Reports: None Dermatologic History: Reports: None - Infectious Disease History Infectious Disease History: Reports: Chicken Pox, MRSA - Past Surgical History HEENT Surgical History: Reports: None Cardiovascular Surgical History: Reports: None Other Neurological Surgeries/Procedures: pt used to be on zoloft Dermatological Surgical History: Reports: Other (See Below) Social & Family History - Family History Family Medical History: No Pertinent Family History Endocrine/Metabolic: Reports: Diabetes, type II - Caffeine Use Caffeine Use: Reports: None - Living Situation & Occupation Living situation: Reports: with Family Occupation: Unemployed ED ROS GENERAL - Review of Systems Review Of Systems: Comprehensive ROS is negative, except as noted in HPI. ED EXAM, GENERAL - Physical Exam Exam: See Below Exam Limited By: No Limitations General Appearance: Alert, WD/WN, No Apparent Distress Eye Exam: Bilateral Eye: Normal Inspection Nose: Clear Rhinorrhea Throat/Mouth: Normal Inspection, Normal Lips, Normal Teeth, Normal Gums, Normal Oropharynx, Normal Voice, No Airway Compromise Head: Atraumatic, Normocephalic Neck: Normal Inspection, Supple, Non-Tender, Full Range of Motion. No: Lymphadenopathy (L), Lymphadenopathy (R) Respiratory/Chest: No Respiratory Distress, Lungs Clear, Normal Breath Sounds, No Accessory Muscle Use, Chest Non-Tender Cardiovascular: Regular Rate, Rhythm, Tachycardia GI/Abdominal: Normal Bowel Sounds, Soft, Non-Tender, No Organomegaly, No Distention, No Abnormal Bruit, No Mass Back Exam: Normal Inspection Extremities: Normal Inspection Neurological: Alert, Oriented, CN II-XII Intact, Normal Cognition, Normal Gait, No Motor/Sensory Deficits Psychiatric: Normal Affect, Normal Mood Skin Exam: Warm, Dry, Intact, Normal Color, No Rash Course - Vital Signs Last Recorded V/S: Last Vital Signs Temp 99.0 F 04/25/21 08:46 Pulse 100 04/25/21 08:46 Resp 16 04/25/21 08:46 BP 154/102 H 04/25/21 08:46 Pulse Ox 99 04/25/21 08:46 - Orders/Labs/Meds Orders: Active Orders 24 hr Category Date Time Status Peripheral IV Care [RC] . DIRECTED Care 04/25/21 08:52 Active COMPREHENSIVE METABOLIC PN,CMP [CHEM] Stat Lab 04/25/21 09:01 Received DRUG SCREEN URINE BIORAD [URCHEM] Stat Lab 04/25/21 08:49 Ordered ETHANOL BLOOD MEDICAL [CHEM] Stat Lab 04/25/21 09:01 Received UA RFX CHRISTEL AND CULT IF INDIC [URIN] Stat Lab 04/25/21 08:50 Ordered Sodium Chloride 0.9% [Normal Saline] 1,000 ml Med 04/25/21 08:52 Active IV .BOLUS Sodium Chloride 0.9% [Saline Flush] Med 04/25/21 08:48 Active 10 ml FLUSH ASDIRECTED PRN Isolation [COMM] Routine Oth 04/25/21 08:52 Active Peripheral IV Insertion Adult [OM.PC] Stat Oth 04/25/21 08:50 Ordered Medication Orders Sodium Chloride (Normal Saline) 1,000 mls @ 999 mls/hr IV .BOLUS ONE Stop: 04/25/21 09:52 Last Admin: 04/25/21 09:09 Dose: 999 mls/hr Documented by: CATRACHITA Sodium Chloride (Sodium Chloride 0.9% 10 Ml Syringe) 10 ml FLUSH ASDIRECTED PRN PRN Reason: Keep Vein Open Last Admin: 04/25/21 09:09 Dose: 10 ml Documented by: CATRACHITA Labs: Laboratory Tests 04/25/21 04/25/21 Range/Units 09:01 09:01 WBC 5.7 (5.0-10.0) 10^3/uL RBC 4.70 (4.6-6.2) 10^6/uL Hgb 13.9 L (14.0-18.0) g/dL Hct 42.2 (40.0-54.0) % MCV 89.8 (80-100) fL MCH 29.6 (27.0-34.0) pg MCHC 32.9 L (33.0-35.0) g/dL Plt Count 247 (150-450) 10^3/uL Neut % (Auto) 74.6 (42.2-75.2) % Lymph % (Auto) 15.0 L (20.5-50.1) % [place] % (Auto) 7.9 (2-8) % Eos % (Auto) 1.4 (1.0-3.0) % Baso % (Auto) 1.1 H (0.0-1.0) % D-Dimer, Quantitative < 100 (0-400) ng/mL Meds: Medications Generic Name Dose Route Start Last Admin Trade Name Freq PRN Reason Stop Dose Admin Sodium Chloride 1,000 mls @ 999 mls/hr 04/25/21 08:52 04/25/21 09:09 Normal Saline IV 04/25/21 09:52 999 mls/hr .BOLUS ONE Administration Sodium Chloride 10 ml 04/25/21 08:48 04/25/21 09:09 Sodium Chloride 0.9% 10 Ml Syringe FLUSH 10 ml ASDIRECTED PRN Administration Keep Vein Open Discontinued Medications Generic Name Dose Route Start Last Admin Trade Name Jayq PRN Reason Stop Dose Admin Ondansetron HCl 4 mg 04/25/21 08:52 04/25/21 09:09 Ondansetron 4 Mg/2 Ml Sdv IV 04/25/21 08:53 4 mg ONETIME ONE Administration - Radiology Interpretation Free Text/Narrative:: [facility] Final Radiology Report Call: [phone] assistance Online chat: [email or web address] [email or web address] Name: MARS YOUSSEF Age: 35Years M Date: 04/25/2021 SSN: -- : [id number] Study: CR CHEST 1V FRONTAL Requesting Physician: MELINDA GEE Images: 1 Addl Studies: Provided Clinical History: short of breath Contrast: Contrast Medium: Contrast Amount: Contrast Method: CONFIDENTIALITY STATEMENT This report is intended only for use by the referring physician, and only in accordance with law. If you received this in error, call [phone]. Page 1 of 1 PROCEDURE INFORMATION: Exam: XR Chest Exam date and time: 04/25/2021 8:56 AM Age: 35 years old Clinical indication: Other: Short of breath TECHNIQUE: Imaging protocol: XR of the chest. Views: 1 view. COMPARISON: No relevant prior studies available. FINDINGS: Lungs: Unremarkable. No consolidation. Pleural spaces: Unremarkable. No pleural effusion. No pneumothorax. Heart/Mediastinum: Unremarkable. No cardiomegaly. Bones/joints: Unremarkable. IMPRESSION: No evidence for acute pulmonary disease. Thank you for allowing us to participate in the care of your patient. Dictated and Authenticated by: Cipriano Souza MD 04/25/2021 9:21 AM Central Time ([place]) Departure - Departure Time of Disposition: 09:41 Disposition: Home, Self-Care 01 Condition: Good Clinical Impression: Influenza B, Uncontrolled hypertension - Discharge Information *PRESCRIPTION DRUG MONITORING PROGRAM REVIEWED*: Not Applicable *COPY OF PRESCRIPTION DRUG MONITORING REPORT IN PATIENT JABIER: Not Applicable Instructions: Influenza, Adult, [id number], Hypertension, Adult, [id number] Forms: ED Department Discharge Additional Instructions: Rx: Tamiflu 75mg Rx: Zofran 4mg Rx: Lisinopril 20mg Use Tylenol (Acetaminophen) and/or Ibuprofen (Motrin/Advil) as needed for fevers or body aches. Follow directions on label for dosing and precautions. Drink plenty of water, Pedialyte, or Gatorade. Follow up in clinic this week for blood pressure recheck and diabetic management. Sepsis Event Note (ED) - Focused Exam Vital Signs: Vital Signs Temp Pulse Resp BP Pulse Ox 04/25/21 08:46 99.0 F 100 16 154/102 H 99 - My Orders Last 24 Hours: My Active Orders 04/25/21 08:48 Sodium Chloride 0.9% [Saline Flush] 10 ml FLUSH ASDIRECTED PRN 04/25/21 08:49 DRUG SCREEN URINE BIORAD [URCHEM] Stat 04/25/21 08:50 UA RFX CHRISTEL AND CULT IF INDIC [URIN] Stat Peripheral IV Insertion Adult [OM.PC] Stat 04/25/21 08:52 Peripheral IV Care [RC] . DIRECTED Sodium Chloride 0.9% [Normal Saline] 1,000 ml IV .BOLUS Isolation [COMM] Routine 04/25/21 09:01 COMPREHENSIVE METABOLIC PN,CMP [CHEM] Stat ETHANOL BLOOD MEDICAL [CHEM] Stat - Assessment/Plan Last 24 Hours: My Active Orders 04/25/21 08:48 Sodium Chloride 0.9% [Saline Flush] 10 ml FLUSH ASDIRECTED PRN 04/25/21 08:49 DRUG SCREEN URINE BIORAD [URCHEM] Stat 04/25/21 08:50 UA RFX CHRISTEL AND CULT IF INDIC [URIN] Stat Peripheral IV Insertion Adult [OM.PC] Stat 04/25/21 08:52 Peripheral IV Care [RC] . DIRECTED Sodium Chloride 0.9% [Normal Saline] 1,000 ml IV .BOLUS Isolation [COMM] Routine 04/25/21 09:01 COMPREHENSIVE METABOLIC PN,CMP [CHEM] Stat ETHANOL BLOOD MEDICAL [CHEM] Stat
[2021-04-25] MEDS ORDERED: Sodium Chloride 0.9% 10 ML Syringe FLUSH PRN (08:48)
[2021-04-25] MEDS ORDERED: Ondansetron 4 MG/2 ML SDV IV ONE (08:52)
[2021-04-25] MEDS ORDERED: Sodium Chloride 0.9% 1,000 ML IV ONE (08:52)
--- NOTE | 2021-04-25 09:21 | CR ---
PROCEDURE INFORMATION: Exam: XR Chest Exam date and time: 04/25/2021 8:56 AM Age: 35 years old Clinical indication: Other: Short of breath TECHNIQUE: Imaging protocol: XR of the chest. Views: 1 view. COMPARISON: No relevant prior studies available. FINDINGS: Lungs: Unremarkable. No consolidation. Pleural spaces: Unremarkable. No pleural effusion. No pneumothorax. Heart/Mediastinum: Unremarkable. No cardiomegaly. Bones/joints: Unremarkable. IMPRESSION: No evidence for acute pulmonary disease.
[2021-04-25 09:39] LABS: ANION GAP 11.7 mEq/L (7-13); CHLORIDE,CL 100 mmol/L (98-107); SODIUM,NA 135 mmol/L (136-145)
== END 2021-04-25 10:07 | disposition home or self-care (01) ==
LOC: DL.ED 08:21
DX: J10.1 Influenza due to other identified influenza virus with other respiratory manifestations (principal); I10 Essential (primary) hypertension; E11.9 Type 2 diabetes mellitus without complications; Z79.4 Long term (current) use of insulin; Z79.899 Other long term (current) drug therapy
CPT/HCPCS: 36415; 71045; 80053; 80307; 85025; 85379; 87804; 96374; 99284; J2405; J7030

== ENCOUNTER 2024-09-30 16:53 | Emergency (ER) | payer SELFPAY ==
[2024-09-30 17:17] LABS: O2 DELIVERY DEVICE ROOM AIR
[2024-09-30 17:19] LABS: BASOPHILS PERCENT AUTO 0.5 % (0.0-1.0); EOSINOPHILS PERCENT AUTO 0.9 % (1.0-3.0); HEMATOCRIT 44.8 % (40.0-54.0); HEMOGLOBIN 15.3 g/dL (14.0-18.0); LYMPHOCYTES PERCENT AUTO 19.3 % (20.5-50.1); MEAN CORPUSCULAR HGB CONC 34.2 g/dL (33.0-35.0); MEAN CORPUSCULAR VOLUME 87.8 fL (80-100); MONOCYTES PERCENT AUTO 4.8 % (2-8); NEUTROPHILS PERCENT AUTO 74.5 % (42.2-75.2); PLATELET COUNT,PLT 239 10^3/uL (150-450); WHITE BLOOD CELL COUNT,WBC 6.5 10^3/uL (5.0-10.0)
[2024-09-30 17:21] LABS: BASE EXCESS VENOUS 2.1 mmol/l ((-2)-(+3)); BICARBONATE,VENOUS 23 mmol/l (19-25); O2 SATURATION VENOUS 55.9 % (60-80); PCO2 VENOUS 29 mmHg (41-51); PH,VENOUS 7.52 (7.31-7.41); PO2 VENOUS 33 mmHg (35-42)
[2024-09-30 17:42] LABS: A/G RATIO 0.9; ALANINE AMINOTRANSFERASE,ALT 42 U/L (16-63); ALBUMIN 4.2 g/dL (3.4-5.0); ALKALINE PHOSPHATASE 85 U/L (46-116); ASPARTATE AMNIOTRANSFERASE,AST 57 U/L (15-37); BILIRUBIN TOTAL 1.2 mg/dL (0.2-1.0); BLOOD UREA NITROGEN,BUN 7 mg/dL (7-18); BUN/CREATININE RATIO 5.6 (No establ ref range); CALCIUM 9.4 mg/dL (8.5-10.1); CARBON DIOXIDE,CO2 25 mmol/L (21-32); CHLORIDE,CL 99 mmol/L (98-107); CREATININE 1.24 mg/dL (0.70-1.30); ETHANOL BLOOD MEDICAL 37 mg/dL (0); GLUCOSE RANDOM 122 mg/dL (70-99); MAGNESIUM 1.3 mg/dL (1.8-2.4); SODIUM,NA 140 mmol/L (136-145)
[2024-09-30 17:43] LABS: ESTIMATED GFR 77 mL/min (>=60); LACTIC ACID 4.3 mmol/L (0.4-2.0)
[2024-09-30] MEDS: chlordiazePOXIDE 25 MG Cap PO ONE (18:00)
[2024-09-30] MEDS: Thiamine 100 MG in Sodium Chloride 0.9% 1,000 ML IV ONE (18:00)
[2024-09-30] MEDS: Sodium Chloride 0.9% 1,000 ML IV SCH ×2 (18:00→18:38)
== END 2024-09-30 19:04 | disposition home or self-care (01) ==
LOC: DL.ED 16:53
DX: F10.239 Alcohol dependence with withdrawal, unspecified (principal); I10 Essential (primary) hypertension; E11.9 Type 2 diabetes mellitus without complications; Z79.899 Other long term (current) drug therapy; Z79.4 Long term (current) use of insulin
CPT/HCPCS: 36415; 71045; 80053; 80307; 82803; 83605; 83735; 84484; 85025; 96365; 99284; 99285-25; A9270-GY; J3411; J7030

== ENCOUNTER 2024-10-02 03:34 | Emergency (ER) | payer SELFPAY ==
[2024-10-02] MEDS: LORazepam 2 MG/ML SDV IVPUSH ONE (03:43)
[2024-10-02] MEDS: Sodium Chloride 0.9% 1,000 ML IV ONE (03:43)
[2024-10-02 03:51] LABS: BASOPHILS PERCENT AUTO 0.7 % (0.0-1.0); EOSINOPHILS PERCENT AUTO 2.3 % (1.0-3.0); HEMATOCRIT 40.8 % (40.0-54.0); HEMOGLOBIN 13.8 g/dL (14.0-18.0); LYMPHOCYTES PERCENT AUTO 24.3 % (20.5-50.1); MEAN CORPUSCULAR HGB CONC 33.8 g/dL (33.0-35.0); MEAN CORPUSCULAR VOLUME 88.7 fL (80-100); MONOCYTES PERCENT AUTO 7.5 % (2-8); NEUTROPHILS PERCENT AUTO 65.2 % (42.2-75.2); PLATELET COUNT,PLT 188 10^3/uL (150-450); WHITE BLOOD CELL COUNT,WBC 5.8 10^3/uL (5.0-10.0)
[2024-10-02 04:02] LABS: APPEARANCE,URINE CLEAR (CLEAR); BILIRUBIN,URINE NEGATIVE (NEGATIVE); COLOR,URINE YELLOW (YELLOW); GLUCOSE,URINE NEGATIVE (NEGATIVE); KETONES,URINE NEGATIVE (NEGATIVE); LEUKOCYTE ESTERASE,URINE TRACE (NEGATIVE); NITRITE,URINE NEGATIVE (NEGATIVE); OCCULT BLOOD,URINE TRACE-INTACT (NEGATIVE); PROTEIN,URINE 30 (NEGATIVE); UROBILINOGEN,URINE 0.2 mg/dL (0.2-1.0)
[2024-10-02 04:05] LABS: BENZODIAZEPINE,URINE NEGATIVE (NEGATIVE); MDMA (ECSTASY), URINE NEGATIVE (NEGATIVE); METHAMPHETAMINES,URINE NEGATIVE (NEGATIVE); OPIATES,URINE NEGATIVE (NEGATIVE); TCA,URINE NEGATIVE (NEGATIVE)
[2024-10-02 04:06] LABS: AMPHETAMINES,URINE NEGATIVE (NEGATIVE); BARBITURATES,URINE NEGATIVE (NEGATIVE); METHADONE,URINE NEGATIVE (NEGATIVE); OXYCODONE,URINE NEGATIVE (NEGATIVE); PHENCYCLIDINE,URINE NEGATIVE (NEGATIVE)
[2024-10-02 04:17] LABS: EPITHELIAL CELLS,URINE RARE /HPF (NOT SEEN); RBC,URINE 0-5 /HPF (0-5)
[2024-10-02 04:18] LABS: BACTERIA,URINE FEW /HPF (0-FEW/HPF); MUCUS,URINE MODERATE /LPF (NOT SEEN)
[2024-10-02 04:19] LABS: BILIRUBIN TOTAL 0.9 mg/dL (0.2-1.0); POTASSIUM,K 3.6 mmol/L (3.5-5.1)
[2024-10-02 04:44] LABS: ALANINE AMINOTRANSFERASE,ALT 41 U/L (16-63); ALKALINE PHOSPHATASE 82 U/L (46-116); ANION GAP 17.6 mEq/L (7-13); ASPARTATE AMNIOTRANSFERASE,AST 53 U/L (15-37); BLOOD UREA NITROGEN,BUN 3 mg/dL (7-18); BUN/CREATININE RATIO 2.8 (No establ ref range); CALCIUM 8.8 mg/dL (8.5-10.1); CARBON DIOXIDE,CO2 24 mmol/L (21-32); CHLORIDE,CL 101 mmol/L (98-107); CREATININE 1.06 mg/dL (0.70-1.30); ESTIMATED GFR 93 mL/min (>=60); ETHANOL BLOOD MEDICAL 46 mg/dL (0); GLUCOSE RANDOM 94 mg/dL (70-99); LIPASE 24 U/L (16-77); MAGNESIUM 1.2 mg/dL (1.8-2.4); PROTEIN TOTAL,TP 7.9 g/dL (6.4-8.2); SODIUM,NA 139 mmol/L (136-145)
[2024-10-02] MEDS: Take Home: LORazepam 1 MG Tab, 2 Tab Pack PO ONE (05:12)
== END 2024-10-02 05:16 | disposition home or self-care (01) ==
LOC: DL.ED 03:34
DX: F10.239 Alcohol dependence with withdrawal, unspecified (principal); R07.9 Chest pain, unspecified; I10 Essential (primary) hypertension; E11.9 Type 2 diabetes mellitus without complications; E11.40 Type 2 diabetes mellitus with diabetic neuropathy, unspecified; Z79.4 Long term (current) use of insulin; Z79.899 Other long term (current) drug therapy; Y90.9 Presence of alcohol in blood, level not specified
CPT/HCPCS: 36415; 71045; 80053; 80305-QW; 80307; 81001; 83690; 83735; 84484; 85025; 87086; 93005; 93010; 96361; 96374; 99284; 99285-25; A9270-GY; J2060; J7030

== ENCOUNTER 2025-01-31 17:20 | Emergency (ER) | payer MEDICAID ==
[2025-01-31 17:49] LABS: BASOPHILS PERCENT AUTO 0.4 % (0.0-1.0); EOSINOPHILS PERCENT AUTO 0.1 % (1.0-3.0); LYMPHOCYTES PERCENT AUTO 11.4 % (20.5-50.1); MONOCYTES PERCENT AUTO 5.5 % (2-8); NEUTROPHILS PERCENT AUTO 82.6 % (42.2-75.2); PLATELET COUNT,PLT 155 10^3/uL (150-450); RED BLOOD CELL COUNT 4.89 10^6/uL (4.6-6.2); WHITE BLOOD CELL COUNT,WBC 7.5 10^3/uL (5.0-10.0)
[2025-01-31 17:58] LABS: A/G RATIO 0.9; ALANINE AMINOTRANSFERASE,ALT 51.0 U/L (16-63); ASPARTATE AMNIOTRANSFERASE,AST 90.0 U/L (15-37); BILIRUBIN TOTAL 1.9 mg/dL (0.2-1.0); BLOOD UREA NITROGEN,BUN 8.0 mg/dL (7-18); CARBON DIOXIDE,CO2 24.0 mmol/L (21-32); CHLORIDE,CL 92.0 mmol/L (98-107); CREATININE 1.04 mg/dL (0.70-1.30); EST CRCL DRUG DOSING (CG) 106.74 mL/min; ESTIMATED GFR 95.0 mL/min (>=60); GLUCOSE RANDOM 103.0 mg/dL (70-99); POTASSIUM,K 4.0 mmol/L (3.5-5.1); PROTEIN TOTAL,TP 9.1 g/dL (6.4-8.2); SODIUM,NA 133.0 mmol/L (136-145)
== END 2025-01-31 18:49 | disposition home or self-care (01) ==
LOC: DL.ED 17:20
DX: F10.239 Alcohol dependence with withdrawal, unspecified (principal); I10 Essential (primary) hypertension; E11.40 Type 2 diabetes mellitus with diabetic neuropathy, unspecified; F17.210 Nicotine dependence, cigarettes, uncomplicated; Z79.4 Long term (current) use of insulin; Z79.899 Other long term (current) drug therapy
CPT/HCPCS: 36415; 80053; 85025; 93005; 93010; 96361; 96374; 99284; 99285; A9270; J3360; J7030

== ENCOUNTER 2025-02-02 12:59 | Emergency (ER) | payer MEDICAID ==
[2025-02-02 13:24] LABS: BASOPHILS PERCENT AUTO 0.5 % (0.0-1.0); EOSINOPHILS PERCENT AUTO 1.0 % (1.0-3.0); LYMPHOCYTES PERCENT AUTO 13.5 % (20.5-50.1); MONOCYTES PERCENT AUTO 5.9 % (2-8); NEUTROPHILS PERCENT AUTO 79.1 % (42.2-75.2); PLATELET COUNT,PLT 119 10^3/uL (150-450); RED BLOOD CELL COUNT 4.74 10^6/uL (4.6-6.2); WHITE BLOOD CELL COUNT,WBC 6.1 10^3/uL (5.0-10.0)
[2025-02-02 14:09] LABS: BLOOD UREA NITROGEN,BUN 7 mg/dL (7-18); CARBON DIOXIDE,CO2 22 mmol/L (21-32); CHLORIDE,CL 102 mmol/L (98-107); CREATININE 1.09 mg/dL (0.70-1.30); ESTIMATED GFR 90 mL/min (>=60); GLUCOSE RANDOM 159 mg/dL (70-99); POTASSIUM,K 3.5 mmol/L (3.5-5.1); SODIUM,NA 140 mmol/L (136-145)
== END 2025-02-02 15:05 | disposition home or self-care (01) ==
LOC: DL.ED 12:59
DX: S20.211A Contusion of right front wall of thorax, initial encounter (principal); F10.230 Alcohol dependence with withdrawal, uncomplicated; I10 Essential (primary) hypertension; E11.40 Type 2 diabetes mellitus with diabetic neuropathy, unspecified; Z79.4 Long term (current) use of insulin; Z79.899 Other long term (current) drug therapy; X58.XXXA Exposure to other specified factors, initial encounter; Y93.89 Activity, other specified
CPT/HCPCS: 36415; 71101; 80048; 83735; 85025; 96361; 96374; 99285; J3360; J7030

== ENCOUNTER 2025-02-02 19:58 | Inpatient (IN) | payer MEDICAID ==
[2025-02-02] MEDS ORDERED: Sodium Chloride 0.9% 10 ML Syringe FLUSH PRN (20:20)
[2025-02-02 20:35] LABS: BASOPHILS PERCENT AUTO 0.5 % (0.0-1.0); EOSINOPHILS PERCENT AUTO 0.5 % (1.0-3.0); LYMPHOCYTES PERCENT AUTO 15.3 % (20.5-50.1); MONOCYTES PERCENT AUTO 6.8 % (2-8); NEUTROPHILS PERCENT AUTO 76.9 % (42.2-75.2); PLATELET COUNT,PLT 114 10^3/uL (150-450); RED BLOOD CELL COUNT 4.66 10^6/uL (4.6-6.2); WHITE BLOOD CELL COUNT,WBC 5.9 10^3/uL (5.0-10.0)
[2025-02-02 20:54] LABS: INR 1.0 (0.9-1.2); PTT,PARTIAL THROMBOPLSTIN TIME 26.7 SEC (22.0-34.0)
[2025-02-02 20:55] LABS: A/G RATIO 0.9; ALANINE AMINOTRANSFERASE,ALT 79 U/L (16-63); ASPARTATE AMNIOTRANSFERASE,AST 145 U/L (15-37); BILIRUBIN TOTAL 1.3 mg/dL (0.2-1.0); BLOOD UREA NITROGEN,BUN 6 mg/dL (7-18); CARBON DIOXIDE,CO2 26 mmol/L (21-32); CHLORIDE,CL 99 mmol/L (98-107); CREATININE 1.04 mg/dL (0.70-1.30); EST CRCL DRUG DOSING (CG) 116.23 mL/min; GLUCOSE RANDOM 148 mg/dL (70-99); POTASSIUM,K 3.4 mmol/L (3.5-5.1); PROTEIN TOTAL,TP 8.4 g/dL (6.4-8.2); SODIUM,NA 136 mmol/L (136-145)
[2025-02-02 20:56] LABS: ESTIMATED GFR 95 mL/min (>=60)
[2025-02-02] MEDS: Ondansetron 4 MG/2 ML SDV IVPUSH ONE (20:58)
[2025-02-02 21:08] LABS: ETHANOL BLOOD MEDICAL < 3 mg/dL (0)
[2025-02-02] MEDS: Magnesium Sulfate 2 GM/50 mL 2 GM in Premix Bag 1 BAG IV ONE (22:04)
[2025-02-02] MEDS: PHENobarbital Sodium 65 MG/ML SDV IM ONE (22:57)
[2025-02-02] MEDS: Potassium Chloride 10 MEQ Tab.ER PO ONE (23:03)
[2025-02-02] MEDS ORDERED: Ondansetron 4 MG/2 ML SDV IVPUSH PRN (23:29)
[2025-02-03] MEDS: Metoprolol Tartrate 5 MG/5 ML SDV IVPUSH SCH (00:25)
[2025-02-03 00:28] LABS: FOLIC ACID 9.3 ng/mL (8.6-58.9); PHOSPHORUS 2.1 mg/dL (2.6-4.7)
[2025-02-03] MEDS: MVI, Adult with Vitamin K 10 ML, Folic Acid 1 MG, Thiamine 100 MG in Lactated Ringers 1... IV ONE (00:36)
[2025-02-03] MEDS: Magnesium Sulfate 2 GM/50 mL 2 GM in Premix Bag 1 BAG IV ONE (00:37)
[2025-02-03] MEDS: cloNIDine 0.1 MG/Day Transdermal Patch TRDERM SCH (00:46)
[2025-02-03 02:06] LABS: IRON,FE 71.0 ug/dL (65-175); PERCENT FE SATURATION 27.2 % (20.0-50.0)
[2025-02-03 06:17] LABS: BASOPHILS PERCENT AUTO 0.6 % (0.0-1.0); EOSINOPHILS PERCENT AUTO 1.4 % (1.0-3.0); LYMPHOCYTES PERCENT AUTO 19.8 % (20.5-50.1); MONOCYTES PERCENT AUTO 6.9 % (2-8); NEUTROPHILS PERCENT AUTO 71.3 % (42.2-75.2); PLATELET COUNT,PLT 92 10^3/uL (150-450); RED BLOOD CELL COUNT 4.10 10^6/uL (4.6-6.2); WHITE BLOOD CELL COUNT,WBC 3.5 10^3/uL (5.0-10.0)
[2025-02-03 06:38] LABS: ALANINE AMINOTRANSFERASE,ALT 73.0 U/L (16-63); ASPARTATE AMNIOTRANSFERASE,AST 138.0 U/L (15-37); BILIRUBIN DIRECT 0.4 mg/dL (0.0-0.2); BILIRUBIN INDIRECT 1.1; BILIRUBIN TOTAL 1.5 mg/dL (0.2-1.0); BLOOD UREA NITROGEN,BUN 5.0 mg/dL (7-18); CARBON DIOXIDE,CO2 25.0 mmol/L (21-32); CHLORIDE,CL 102.0 mmol/L (98-107); CREATININE 0.81 mg/dL (0.70-1.30); EST CRCL DRUG DOSING (CG) 149.24 mL/min; GLUCOSE RANDOM 115.0 mg/dL (70-99); PHOSPHORUS 3.2 mg/dL (2.6-4.7); POTASSIUM,K 3.4 mmol/L (3.5-5.1); PROTEIN TOTAL,TP 6.9 g/dL (6.4-8.2); SODIUM,NA 136.0 mmol/L (136-145)
[2025-02-03 06:39] LABS: A/G RATIO 0.82; ESTIMATED GFR 116.0 mL/min (>=60)
[2025-02-03] MEDS: Heparin Sodium 5,000 Units/ML Vial SUBCUT SCH (06:55)
[2025-02-03] MEDS: Potassium Chloride 10 MEQ Tab.ER PO SCH (09:06)
[2025-02-03 16:26] LABS: AMPHETAMINES,URINE NEGATIVE (NEGATIVE); BARBITURATES,URINE POSITIVE (NEGATIVE); MDMA (ECSTASY), URINE NEGATIVE (NEGATIVE); METHAMPHETAMINES,URINE NEGATIVE (NEGATIVE); OPIATES,URINE NEGATIVE (NEGATIVE); OXYCODONE,URINE NEGATIVE (NEGATIVE); PHENCYCLIDINE,URINE NEGATIVE (NEGATIVE); TCA,URINE NEGATIVE (NEGATIVE)
[2025-02-03] MEDS: Phosphorus #1 250 MG Tab PO SCH (21:01)
[2025-02-04 06:23] LABS: BASOPHILS PERCENT AUTO 0.3 % (0.0-1.0); EOSINOPHILS PERCENT AUTO 4.6 % (1.0-3.0); LYMPHOCYTES PERCENT AUTO 18.8 % (20.5-50.1); MONOCYTES PERCENT AUTO 7.3 % (2-8); NEUTROPHILS PERCENT AUTO 69.0 % (42.2-75.2); PLATELET COUNT,PLT 100 10^3/uL (150-450); RED BLOOD CELL COUNT 4.30 10^6/uL (4.6-6.2); WHITE BLOOD CELL COUNT,WBC 3.0 10^3/uL (5.0-10.0)
[2025-02-04 06:42] LABS: BLOOD UREA NITROGEN,BUN 5.0 mg/dL (7-18); CARBON DIOXIDE,CO2 24.0 mmol/L (21-32); CHLORIDE,CL 105.0 mmol/L (98-107); CREATININE 0.78 mg/dL (0.70-1.30); EST CRCL DRUG DOSING (CG) 154.98 mL/min; GLUCOSE RANDOM 81.0 mg/dL (70-99); POTASSIUM,K 3.6 mmol/L (3.5-5.1); SODIUM,NA 140.0 mmol/L (136-145)
[2025-02-04 06:43] LABS: ESTIMATED GFR 118.0 mL/min (>=60)
[2025-02-05 06:23] LABS: BASOPHILS PERCENT AUTO 0.5 % (0.0-1.0); EOSINOPHILS PERCENT AUTO 4.9 % (1.0-3.0); LYMPHOCYTES PERCENT AUTO 16.2 % (20.5-50.1); MONOCYTES PERCENT AUTO 7.6 % (2-8); NEUTROPHILS PERCENT AUTO 70.8 % (42.2-75.2); PLATELET COUNT,PLT 114 10^3/uL (150-450); RED BLOOD CELL COUNT 4.36 10^6/uL (4.6-6.2); WHITE BLOOD CELL COUNT,WBC 3.7 10^3/uL (5.0-10.0)
[2025-02-05 06:35] LABS: BLOOD UREA NITROGEN,BUN 5.0 mg/dL (7-18); CARBON DIOXIDE,CO2 28.0 mmol/L (21-32); CHLORIDE,CL 106.0 mmol/L (98-107); CREATININE 0.88 mg/dL (0.70-1.30); EST CRCL DRUG DOSING (CG) 137.37 mL/min; ESTIMATED GFR 114.0 mL/min (>=60); GLUCOSE RANDOM 108.0 mg/dL (70-99); PHOSPHORUS 2.7 mg/dL (2.6-4.7); POTASSIUM,K 3.6 mmol/L (3.5-5.1); SODIUM,NA 140.0 mmol/L (136-145)
[2025-02-05 15:43] LABS: HAV AB IGM Negative (Negative); HBC IGM Negative (Negative); HEP B SURG AG Negative (Negative); HEP C AB BY CIA Negative (Negative); HEP C AB BY CIA INDEX 0.03 IV
[2025-02-06 07:53] LABS: BASOPHILS PERCENT AUTO 0.2 % (0.0-1.0); EOSINOPHILS PERCENT AUTO 3.0 % (1.0-3.0); LYMPHOCYTES PERCENT AUTO 13.1 % (20.5-50.1); MONOCYTES PERCENT AUTO 9.9 % (2-8); NEUTROPHILS PERCENT AUTO 73.8 % (42.2-75.2); PLATELET COUNT,PLT 149 10^3/uL (150-450); RED BLOOD CELL COUNT 4.33 10^6/uL (4.6-6.2); WHITE BLOOD CELL COUNT,WBC 6.4 10^3/uL (5.0-10.0)
[2025-02-06 08:14] LABS: ALANINE AMINOTRANSFERASE,ALT 106.0 U/L (16-63); ASPARTATE AMNIOTRANSFERASE,AST 95.0 U/L (15-37); BILIRUBIN TOTAL 0.5 mg/dL (0.2-1.0); BLOOD UREA NITROGEN,BUN 8.0 mg/dL (7-18); CARBON DIOXIDE,CO2 26.0 mmol/L (21-32); CHLORIDE,CL 104.0 mmol/L (98-107); CREATININE 0.99 mg/dL (0.70-1.30); EST CRCL DRUG DOSING (CG) 122.1 mL/min; GLUCOSE RANDOM 117.0 mg/dL (70-99); POTASSIUM,K 3.2 mmol/L (3.5-5.1); PROTEIN TOTAL,TP 7.5 g/dL (6.4-8.2); SODIUM,NA 140.0 mmol/L (136-145)
[2025-02-06 08:21] LABS: A/G RATIO 0.7; ESTIMATED GFR 101.0 mL/min (>=60)
[2025-02-06] MEDS: Magnesium Sulfate 2 GM/50 mL 2 GM in Premix Bag 1 BAG IV ONE (09:40)
[2025-02-07 06:34] LABS: BASOPHILS PERCENT AUTO 0.4 % (0.0-1.0); EOSINOPHILS PERCENT AUTO 5.4 % (1.0-3.0); LYMPHOCYTES PERCENT AUTO 19.1 % (20.5-50.1); MONOCYTES PERCENT AUTO 12.6 % (2-8); NEUTROPHILS PERCENT AUTO 62.5 % (42.2-75.2); PLATELET COUNT,PLT 165 10^3/uL (150-450); RED BLOOD CELL COUNT 4.20 10^6/uL (4.6-6.2); WHITE BLOOD CELL COUNT,WBC 4.5 10^3/uL (5.0-10.0)
[2025-02-07 06:56] LABS: ALANINE AMINOTRANSFERASE,ALT 122.0 U/L (16-63); ASPARTATE AMNIOTRANSFERASE,AST 126.0 U/L (15-37); BILIRUBIN TOTAL 0.4 mg/dL (0.2-1.0); BLOOD UREA NITROGEN,BUN 12.0 mg/dL (7-18); CARBON DIOXIDE,CO2 28.0 mmol/L (21-32); CHLORIDE,CL 105.0 mmol/L (98-107); CREATININE 1.04 mg/dL (0.70-1.30); EST CRCL DRUG DOSING (CG) 116.23 mL/min; GLUCOSE RANDOM 128.0 mg/dL (70-99); POTASSIUM,K 3.9 mmol/L (3.5-5.1); PROTEIN TOTAL,TP 7.3 g/dL (6.4-8.2); SODIUM,NA 143.0 mmol/L (136-145)
[2025-02-07 07:01] LABS: A/G RATIO 0.7; ESTIMATED GFR 95.0 mL/min (>=60)
[2025-02-07] MEDS ORDERED: Ondansetron 4 MG Tab.DIS PO PRN (10:38)
== END 2025-02-07 12:25 | disposition home or self-care (01) | DRG 897 ==
LOC: DL.ED 19:58 → DL.MS 22:16 → DL.ED 22:27 → DL.MS 02-05 10:40
PROVIDERS: ADMIT Internal Medicine; ATTEND Student in an Organized Health Care Education/Training Program
DX: F10.239 Alcohol dependence with withdrawal, unspecified (principal); E87.20 Acidosis, unspecified; F05 Delirium due to known physiological condition; D61.818 Other pancytopenia; E11.40 Type 2 diabetes mellitus with diabetic neuropathy, unspecified; I10 Essential (primary) hypertension; F32.A Depression, unspecified; E11.65 Type 2 diabetes mellitus with hyperglycemia; H54.7 Unspecified visual loss; F15.10 Other stimulant abuse, uncomplicated; F12.90 Cannabis use, unspecified, uncomplicated; R56.9 Unspecified convulsions; R32 Unspecified urinary incontinence; D69.6 Thrombocytopenia, unspecified; E87.6 Hypokalemia; E83.42 Hypomagnesemia; R74.01 Elevation of levels of liver transaminase levels; E80.6 Other disorders of bilirubin metabolism; E11.21 Type 2 diabetes mellitus with diabetic nephropathy; S20.219A Contusion of unspecified front wall of thorax, initial encounter; K70.9 Alcoholic liver disease, unspecified; I16.0 Hypertensive urgency; D72.10 Eosinophilia, unspecified; Z79.4 Long term (current) use of insulin; Z79.899 Other long term (current) drug therapy
CPT/HCPCS: 36415; 80048; 80053; 80074; 80076; 80143; 80305-QW; 80307; 82272; 82607; 82746; 83036; 83540; 83550; 83735; 84100; 85025; 85610; 85730; 93005; 96374; 96375; 99223; 99232; 99238; 99285-25; A9270-GY; J0612; J1644; J1808; J2405; J2470; J2560; J3411; J3475; J3486; J3490; J7030; J7120